=== PATIENT | male | born 1975 | race Caucasian/White ===

== ENCOUNTER 2016-10-11 09:07 | Emergency (ER) | payer OTHER ==
--- NOTE | ~2016-10-11 | ER ---
[facility] AGE[facility] 41 Y [address] ROOM: [place] [id number] LOCATION: [facility] ADMIT DATE: 10/11/2016 ER/Outpatient Report DISCHARGE DATE: 10/11/2016 FAMILY PHYSICIAN: Joseph Goddard MD ATTENDING PHYSICIAN: Miryam Rivas Time of Arrival: 9:07. Time Seen: 9:07. IDENTIFICATION: A 41-year-old male. CHIEF COMPLAINT: Abdominal pain. HISTORY OF PRESENT ILLNESS: The patient is a 41-year-old male, who was brought over by Dr. Goddard from his office. The patient at 7 a.m. developed onset of right flank pain radiating to his right back and right low abdomen and groin. This was associated with nausea and vomiting. It is a colicky-type pain. He has not had pain like this before. No history of kidney stones. No constipation or diarrhea. ALLERGIES: NO KNOWN DRUG ALLERGIES. CURRENT MEDICATIONS: No current medications. MEDICAL PROBLEMS: He denies. PAST SURGICAL/HOSPITALIZATION HISTORY: No prior surgeries or hospitalizations. SOCIAL HISTORY: The patient lives here in [place]. He is . He works here at [employer]. Tobacco use, denies. Alcohol use, denies. Drug use, denies. REVIEW OF SYSTEMS: All systems were reviewed and are negative other than what is noted in the HPI. PATIENT'S NAME: ARMIN APPLE [facility] AGE: 41 Y [address] ROOM: [place] [address] LOCATION: [facility] ADMIT DATE: 10/11/2016 ER/Outpatient Report DISCHARGE DATE: 10/11/2016 FAMILY PHYSICIAN: Joseph Goddard MD ATTENDING PHYSICIAN: Miryam Rivas FAMILY HISTORY: No pertinent family history. PHYSICAL EXAMINATION: VITAL SIGNS: Height is 5 feet 7 inches and weight is 88.9 kg. Blood pressure was 117/65, pulse was 56, temperature was 96.8, and saturations were 97%. GENERAL: A 41-year-old male, in obvious distress with 8/10 pain. HEENT: Head: Normocephalic and atraumatic. Ears: TMs are not visualized. Eyes: Pupils are equal and reactive to light and accommodation. Extraocular movements are intact. Nose: Mucosa is pink. No lesions. Mouth: No lesions. Pharynx is benign. NECK: Supple. No lymphadenopathy. LUNGS: Clear to auscultation. Breath sounds are equal. No rhonchi, wheezes, or rales. HEART: Regular rate and rhythm. No murmur, rub, or gallop. ABDOMEN: Bowel sounds are present. Soft, nondistended, and nontender. SKIN: Diaphoretic and pale. NEUROLOGICAL: The patient is alert and oriented x4. Cranial nerves II through XII are grossly intact. Motor strength was 5/5 throughout. Sensation is intact to light touch. EMERGENCY ROOM COURSE: An IV was initiated, Toradol 30 mg IV and Zofran 4 mg IV with improvement of his symptoms and his pain resolved. UA: 50 to 100 red cells and 0 to 2 white cells. Sodium of 143, potassium of 3.6, chloride of 112, CO2 of 23, BUN of 15, creatinine of 1.7, and blood sugar of 151; hemoglobin of 16.7, hematocrit of 46.7, platelets of 196, and white count of 9.4, normal differential. CT scan, stone protocol, minimally obstructing 1.5-mm stone at the right UV junction. IMPRESSION: 1. Kidney stone in right UV junction of 1.5 mm. 2. Acute kidney injury, creatinine is 1.7. 3. Hyperglycemia, non-fasting blood sugar is 151. PLAN: Kidney stone handout. Push fluids. Strain urine. Flomax 0.4 mg daily for three days. [place] 5/325 one to two p.o. q.4-6 hours p.r.n. pain, dispensed 15 with zero refills. Zofran 4 mg one p.o. q.6 hours p.r.n. nausea, dispensed 4 with zero refills. Follow up with Dr. Goddard in two to three days. Follow up sooner if any problems or concerns. The patient does understand and agree, and all questions have been answered. He does understand that he will have a repeat lab check for creatinine and fasting blood sugar. PATIENT'S NAME: ARMIN APPLE [facility] AGE: 41 Y [address] ROOM: [place] [address] LOCATION: [facility] ADMIT DATE: 10/11/2016 ER/Outpatient Report DISCHARGE DATE: 10/11/2016 FAMILY PHYSICIAN: Joseph Goddard MD ATTENDING PHYSICIAN: Miryam Rivas MIRYAM RIVAS MD CAR/modl /[id number] d: 10/12/16 0028 t: 10/14/16 0705, OUTPATIENT REPORT
[2016-10-11 09:28] LABS: BASOPHIL % 0.4 %; EOSINOPHIL % 0.2 %; HEMATOCRIT 46.7 % (37.0-53.0); HEMOGLOBIN 16.7 g/dL (12.0-17.0); IMMATURE GRANULOCYTE % 0.3 %; LYMPHOCYTE # 1.8 K/uL (0.8-4.0); LYMPHOCYTE % 19.1 %; MCH 30.1 pg (27.0-34.0); MCHC 35.8 gm/dL (32.0-36.5); MCV 84.1 fl (83.0-98.0); MONOCYTE # 0.7 K/uL (0.0-1.0); MPV 9.7 fl (9.4-12.4); NEUTROPHIL # (ANC) 6.9 K/uL (1.4-9.0); NRBC % 0 /100WBC (0-0.00); PLATELET COUNT 196 K/uL (150-450); RBC 5.55 M/uL (4.00-6.00); RDW-CV 12.4 % (11.9-14.6); WBC 9.4 K/uL (4.0-11.0)
[2016-10-11 09:51] LABS: ALBUMIN 4.1 gm/dL (3.5-5.0); ANION GAP 11.6 (10.0-19.0); CALCIUM 8.7 mg/dL (8.5-10.5); CREATININE 1.7 mg/dL (0.6-1.3); POTASSIUM 3.6 mMol/L (3.7-5.1); TOTAL BILIRUBIN 0.7 mg/dL (0.0-1.5); TOTAL PROTEIN 7.4 g/dL (6.0-8.4)
[2016-10-11 10:15] LABS: BILIRUBIN URINE NEGATIVE (NEGATIVE); BLOOD URINE 250 /UL (NEGATIVE); COLOR URINE YELLOW (YELLOW); GLUCOSE URINE NEGATIVE (NEGATIVE); KETONE URINE 150 mg/dL (NEGATIVE); LEUKOCYTES URINE 25 /UL (NEGATIVE); NITRITE URINE NEGATIVE (NEGATIVE); PROTEIN URINE 15 mg/dL (NEGATIVE); SPEC GRAVITY URINE 1.015 (1.003-1.035); TURBIDITY URINE CLEAR (CLEAR); UROBILINOGEN URINE NORMAL (NORMAL)
[2016-10-11 10:26] LABS: RBC URINE 50-100 #/HPF (NEGATIVE); WBC URINE 0-2 #/HPF (NEGATIVE)
[2016-10-11 10:27] LABS: BACTERIA URINE RARE (NEGATIVE); EPITHELIAL URINE NEGATIVE #/HPF (NEGATIVE)
== END 2016-10-11 11:14 | disposition disaster alternative care site (69) ==
LOC: GMED 09:07
PROVIDERS: Family Medicine
DX: N20.1 Calculus of ureter (principal); N17.9 Acute kidney failure, unspecified; R73.9 Hyperglycemia, unspecified
CPT/HCPCS: J1885; J2405; J7030